=== PATIENT | male | born 1980 | race Caucasian/White ===

== ENCOUNTER 2018-03-06 16:23 | Inpatient (IN) | payer BC ==
[~2018-03-06 16:23] MED LIST: CEP500 PO; LOR5 PO; LORA-802 PO
[2018-03-06] MEDS ORDERED: NS(*) 0.9% 1000 ML BAG 1,000 ML IV ONE (16:35)
[2018-03-06] MEDS ORDERED: ONDANSETRON 4 MG/2 ML VIAL IVP ONE (16:40)
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
[2018-03-06 16:45] LABS: PLATELET COUNT, AUTOMATED 326 K/uL (150-450)
[2018-03-06] MEDS ORDERED: DEXTROSE 50% 50 ML SYR ONE (16:59)
[2018-03-06] MEDS ORDERED: DEXL60CA6 PO (17:05)
[2018-03-06] MEDS ORDERED: DULO60CA56 PO (17:05)
[2018-03-06] MEDS ORDERED: PREG150C33 PO (17:05)
[2018-03-06 17:12] LABS: INR 0.96
--- NOTE | 2018-03-06 17:26 | RADIOLOGY IMAGING REPORT ---
FACILITY: [facility] [place] PATIENT NAME: Otto Zurita : 1980 MR: [id number] V: [id number] EXAM DATE: [id number] ORDERING PHYSICIAN: ISABELLA AHUMADA TECHNOLOGIST: Location[place] [facility] [place] Patient: Otto Zurita : 1980 Visit/Account:[id number] Date of Sevice: 03/06/2018 EXAMINATION: CT HEAD AND CERVICAL SPINE WITHOUT CONTRAST COMPARISON: None available HISTORY: fall, head injury, sz activity, hx TBI PROCEDURE: Noncontrast CT from the vertex through the skull base and multiplanar noncontrast cervical spine. One of the following dose optimization techniques was utilized in the performance of this exa m: Automated exposure control; adjustment of the mA and/or kV according to the patient's size; or use of an iterative reconstruction technique. Specific details can be referenced in the facility's rad iology CT exam operational policy. FINDINGS: CT head without contrast: Brain volume: Age-appropriate. Hemorrhage/extra-axial fluid: None. Mass effect/midline shift/edema: None. Ischemia: Garza-white differentiation is preserved. Ventricles and basal cisterns: Within normal limits. Posterior fossa: Negative. Vessels: Negative. Calvarium, skull base, and scalp: Negative. Visualized sinuses and orbits: Within normal limits. CT cervical spine without contrast: Alignment: Within normal limits. Cranio-cervical junction: Within normal limits. Vertebral bodies: No fracture. Posterior elements: Facet alignment is within normal limits. No fracture. Disc spaces: Negative. Hardware: None. Soft tissues: Negative. Visualized upper chest: Negative. IMPRESSION: 1. Negative noncontrast head CT. 2. Negative CT cervical spine. Report Dictated By: Curtis Tobias MD at 03/06/2018 5:11 PM Report E-Signed By: Curtis Tobias MD at 03/06/2018 5:22 PM [id number]
--- NOTE | 2018-03-06 17:27 | RADIOLOGY IMAGING REPORT ---
FACILITY: [facility] PATIENT NAME: Otto Zuriat : 1980 MR: [id number] V: [id number] EXAM DATE: ORDERING PHYSICIAN: ISABELLA AHUMADA TECHNOLOGIST: Location: [facility] Patient: Otto Zurita : 1980 Visit/Account:[id number] Date of Sevice: 03/06/2018 Examination: CHEST SINGLE AP Comparison: None. History: Fall. Altered level of consciousness. Findings: Cardiac and hilar contour size is within normal limits. No consolidation, nodule, or peribr onchial inflammation. No pneumothorax, edema, or effusion. Osseous structures are intact. IMPRESSION: Negative chest. Report Dictated By: Curtis Tobias MD at 03/06/2018 5:22 PM Report E-Signed By: Curtis Tobias MD at 03/06/2018 5:23 PM [id number]
--- NOTE | 2018-03-06 17:27 | RADIOLOGY IMAGING REPORT ---
FACILITY: [facility] PATIENT NAME: Otto Zurita : 1980 MR: [id number] V: [id number] EXAM DATE: [id number] ORDERING PHYSICIAN: ISABELLA AHUMADA TECHNOLOGIST: Location: [facility] Patient: Otto Zurita : 1980 Visit/Account:[id number] Date of Sevice: 03/06/2018 EXAMINATION: CT HEAD AND CERVICAL SPINE WITHOUT CONTRAST COMPARISON: None available HISTORY: fall, head injury, sz activity, hx TBI PROCEDURE: Noncontrast CT from the vertex through the skull base and multiplanar noncontrast cervical spine. One of the following dose optimization techniques was utilized in the performance of this exa m: Automated exposure control; adjustment of the mA and/or kV according to the patient's size; or use of an iterative reconstruction technique. Specific details can be referenced in the facility's rad iology CT exam operational policy. FINDINGS: CT head without contrast: Brain volume: Age-appropriate. Hemorrhage/extra-axial fluid: None. Mass effect/midline shift/edema: None. Ischemia: Garza-white differentiation is preserved. Ventricles and basal cisterns: Within normal limits. Posterior fossa: Negative. Vessels: Negative. Calvarium, skull base, and scalp: Negative. Visualized sinuses and orbits: Within normal limits. CT cervical spine without contrast: Alignment: Within normal limits. Cranio-cervical junction: Within normal limits. Vertebral bodies: No fracture. Posterior elements: Facet alignment is within normal limits. No fracture. Disc spaces: Negative. Hardware: None. Soft tissues: Negative. Visualized upper chest: Negative. IMPRESSION: 1. Negative noncontrast head CT. 2. Negative CT cervical spine. Report Dictated By: Curtis Tobias MD at 03/06/2018 5:11 PM Report E-Signed By: Curtis Tobias MD at 03/06/2018 5:22 PM [id number]
--- NOTE | 2018-03-06 17:31 | EKG ---
FACILITY: [facility] PATIENT NAME: SHERMAN SMITH : [id number] MR: [id number] V: [id number] EXAM DATE: ORDERING PHYSICIAN: ISABELLA AHUMADA TECHNOLOGIST: SO López Reason : Blood Pressure : / mmHG Vent. Rate : 076 BPM Atrial Rate : 076 BPM P-R Int : 148 ms QRS Dur : 086 ms QT Int : 408 ms P-R-T Axes : 060 081 055 degrees QTc Int : 459 ms Sinus rhythm Nonspecific ST findings anterior leads No previous ECGs available Confirmed by NORMA GIANG ([id number] on 03/07/2018 6:28:45 AM Referred By: Confirmed By:NORMA GIANG
[2018-03-06] MEDS ORDERED: fentaNYL CITR 100 MCG/2 ML AMP IVP ONE (18:05)
[2018-03-06 18:54] VITALS: BP 121/80
[2018-03-06] MEDS: ACETAMINOPHEN 325 MG TAB PO PRN (19:38)
[2018-03-06] MEDS: D5 1/2 NS(*) 1000 ML BAG 1,000 ML IV PRN (19:48)
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
[2018-03-06] MEDS: DULoxetine HCL 30 MG CAPCR PO SCH (21:50)
[2018-03-06 22:05] VITALS: BP 111/75
[2018-03-07 05:51] LABS: PLATELET COUNT, AUTOMATED 272 K/uL (150-450)
[2018-03-07] MEDS: ACETAMINOPHEN 325 MG TAB PO PRN ×3 (06:33→22:15)
[2018-03-07] MEDS: D5 1/2 NS(*) 1000 ML BAG 1,000 ML IV PRN ×2 (06:35→21:56)
[2018-03-07 07:02] VITALS: BP 110/78
[2018-03-07] MEDS: PROMETHAZINE 25 MG/ML 1 ML AMP IVP PRN ×2 (07:22→16:36)
[2018-03-07] MEDS ORDERED: PREGABALIN 50 MG CAPSULE PO ONE (09:00)
[2018-03-07] MEDS: PANTOPRAZOLE SOD 40 MG TABEC PO SCH (09:10)
[2018-03-07] MEDS: ENOXAPARIN 40 MG/0.4ML SYR SC SCH (09:11)
--- NOTE | 2018-03-07 10:35 | Hospitalist Progress Note ---
Subjective Progress Notes Subjective He has complaints of headache and nausea this morning. He states the headache is worse than his usual. Patient Complains of: Cardiovascular: No: Chest Pain Respiratory: No: Shortness of Breath Physical Exam Vital Signs Date Time Temp Pulse Resp B/P (MAP) Pulse Ox O2 Delivery O2 Flow Rate FiO2 03/07/18 07:02 97.8 70 18 110/78 (89) 87 Room Air 03/06/18 22:05 0.5 Intake and Output 03/07/18 00:00 Intake Total 1250 ml Output Total 900 ml Balance 350 ml Intake Oral 250 ml IV Total 1000 ml Output Urine Total 900 ml # Voids 1 General Appearance: Alert, Awake, No Acute Distress, Afebrile Neuro: Other (right sided weakness, improving per patient) Cardiovascular: Regular Rate and Rhythm Respiratory: No Respiratory Distress, Clear to Auscultation GI: Soft and Non-Tender Extremities: Warm, Perfused; No Edema Psych: Alert & Oriented X3, Appropriate Mood & Affect Result Diagram: 03/07/1852103/07/18521 Assessment and Plan Problems: (1) Seizure Status: Acute Assessment & Plan: It does sound as if he had a generalized tonic-clonic seizure. It was likely related to the hypoglycemia, but could also be related to his previous TBI or possibly medications. Continue telemetry and seizure precautions. Will monitor glucoses closely. Check insulin and c-peptide levels. EEG done this morning wnl. He has not had further seizure since maintaining his blood glucoses. (2) Hypoglycemia Status: Acute Assessment & Plan: He is not diabetic and not taking any medications for such. He is on Lyrica which can cause hypoglycemia albeit rarely. Resume, secondary to likely withdraw symptoms of Lyrica. Insulin and c-peptide levels pending. He is nauseous this morning. He will continue D5 1/2NS for his IV fluids until eating regularly. Check glucoses every 2hrs. Watch closely. (3) TBI (traumatic brain injury) Status: Chronic Assessment & Plan: This may be the underlying cause for seizure. EEG wnl. (4) Post traumatic stress disorder (PTSD) Status: Chronic Assessment & Plan: He has been managed with fairly high dose Cymbalta (120mg qHS). Will continue for now. (5) Chronic back pain Status: Chronic Assessment & Plan: He is on chronic treatment with Lyrica. He likely was having withdraw from Lyrica, with headache and nausea. Symptoms improving after resuming Lyrica. Will have to monitor glucose closely, as Lyrica could cause hypoglycemia. (6) Chronic hip pain Status: Chronic Exam Sepsis Risk: No Definite Risk SAV BERNABE CHEMICAL EQUIPMENT REPAIRER Mar 07, 2018 10:35
[2018-03-07 12:46] VITALS: BP 113/75
[2018-03-07] MEDS: PREGABALIN 50 MG CAPSULE PO SCH ×2 (14:02→20:18)
[2018-03-07 19:10] VITALS: BP 115/74
[2018-03-07] MEDS ORDERED: INFLUENZA VIRUS VAC 0.5ML SYR IM ONLY ONE (19:20)
[2018-03-07] MEDS: DULoxetine HCL 30 MG CAPCR PO SCH (20:17)
[2018-03-07] MEDS ORDERED: PREGABALIN 50 MG CAPSULE PO SCH (21:00)
[2018-03-08] VITALS (7 sets, daily range): BP systolic 91–134; BP diastolic 54–88
[2018-03-08] MEDS: PROMETHAZINE 25 MG/ML 1 ML AMP IVP PRN ×3 (00:13→20:32)
[2018-03-08] MEDS: PANTOPRAZOLE SOD 40 MG TABEC PO SCH (09:06)
[2018-03-08] MEDS: PREGABALIN 50 MG CAPSULE PO SCH ×3 (09:06→20:32)
[2018-03-08] MEDS: ENOXAPARIN 40 MG/0.4ML SYR SC SCH (09:07)
[2018-03-08] MEDS: ACETA/BUTAL/CAFF 325/50/40 TAB PO PRN ×2 (10:11→20:32)
--- NOTE | 2018-03-08 11:30 | Hospitalist Progress Note ---
Subjective Progress Notes Subjective He was admitted with hypoglycemia. He reports much improvement in symptoms from yesterday (MEDRANO and nausea). He has been eating without difficulty. Patient Complains of: Cardiovascular: No: Chest Pain Respiratory: No: Shortness of Breath Physical Exam Vital Signs Date Time Temp Pulse Resp B/P (MAP) Pulse Ox O2 Delivery O2 Flow Rate FiO2 03/08/18 08:02 97.7 70 16 98/59 (72) 90 Room Air 03/08/18 04:07 0.5 Intake and Output 03/08/18 06:59 Intake Total 1810 ml Balance 1810 ml Intake Oral 810 ml IV Total 1000 ml # Voids 3 General Appearance: Alert, Awake, No Acute Distress, Afebrile Neuro: No Gross deficits Cardiovascular: Regular Rate and Rhythm Respiratory: No Respiratory Distress, Clear to Auscultation GI: Soft and Non-Tender Psych: Alert & Oriented X3, Appropriate Mood & Affect Result Diagram: 03/07/1852103/07/18521 Assessment and Plan Problems: (1) Seizure Status: Acute Assessment & Plan: It does sound as if he had a generalized tonic-clonic seizure. It was likely related to the hypoglycemia, but could also be related to his previous TBI or possibly medications. Continue telemetry and seizure precautions. Will monitor glucoses closely. Insulin and c-peptide levels pending. EEG done 03/07 wnl. He has not had further seizure since maintaining his blood glucoses. (2) Hypoglycemia Status: Acute Assessment & Plan: He is not diabetic and not taking any medications for such. He is on Lyrica which can cause hypoglycemia albeit rarely. Resume, secondary to likely withdraw symptoms of Lyrica. Insulin and c-peptide levels pending. We will discontinue D5 1/2NS this morning. Check glucoses every 2hrs, likely can reduce to q4 hour checks this afternoon. (3) TBI (traumatic brain injury) Status: Chronic Assessment & Plan: This may be the underlying cause for seizure, but he has had no further seizures since admission. EEG wnl. (4) Post traumatic stress disorder (PTSD) Status: Chronic Assessment & Plan: He has been managed with fairly high dose Cymbalta (120mg qHS). Will continue. (5) Chronic back pain Status: Chronic Assessment & Plan: He is on chronic treatment with Lyrica. He likely was having withdraw from Lyrica, with headache and nausea. Symptoms improved after resuming Lyrica. Will continue to monitor glucose closely, as Lyrica could cause hypoglycemia. (6) Chronic hip pain Status: Chronic Exam Sepsis Risk: No Definite Risk SAV BERNABE SHIP SURVEYOR Mar 08, 2018 11:30
[2018-03-08] MEDS: DULoxetine HCL 30 MG CAPCR PO SCH (20:32)
[2018-03-09 04:04] VITALS: BP 99/59
[2018-03-09] MEDS: PROMETHAZINE 25 MG/ML 1 ML AMP IVP PRN ×2 (04:06→10:53)
[2018-03-09 05:52] LABS: PLATELET COUNT, AUTOMATED 289 K/uL (150-450)
[2018-03-09] MEDS: ENOXAPARIN 40 MG/0.4ML SYR SC SCH (08:51)
[2018-03-09] MEDS: PREGABALIN 50 MG CAPSULE PO SCH ×2 (08:51→14:42)
[2018-03-09] MEDS: PANTOPRAZOLE SOD 40 MG TABEC PO SCH (08:51)
[2018-03-09] MEDS: ACETA/BUTAL/CAFF 325/50/40 TAB PO PRN (10:53)
[2018-03-09 11:47] VITALS: BP 122/94
[2018-03-09] MEDS ORDERED: BLOO-1511 MC (12:48)
[2018-03-09] MEDS ORDERED: GLUC1KIT4 IJ (12:48)
[2018-03-09] MEDS ORDERED: lancets (12:48)
[2018-03-09] MEDS ORDERED: Glucometer (12:48)
--- NOTE | 2018-03-09 12:58 | Hospitalist Depart ---
Discharge Summary Reason for Hosp/Final Diag: (1) Hypoglycemia Status: Acute Hospital Course & Plan: He presented with a seizure and a glucose of 39. He is not diabetic and not taking any medications for such. He is on Lyrica which can cause hypoglycemia albeit rarely. He was given an amp of D50 and started on a D5 IV drip. Glucose has been stable. The drip was stopped yesterday and his glucose has remained stable. C-Peptide and Insulin levels are high. There wasn't a glucose done with the test, so it is not clear if they are truly abnormal. However, there was a figure stick glucose reported to be done within 4 minutes of the blood draw that was 73. I spoke with Dr. Marvin (Endocrinology) and she recommended further evaluation as an inpatient or outpatient. The patient and prefer outpatient. He will be sent home with a glucagon emergency kit and a glucometer. He is to check glucose every morning and with symptoms. (2) Seizure Status: Acute Hospital Course & Plan: It does sound as if he had a generalized tonic-clonic seizure. It was likely related to the hypoglycemia, but could also be related to his previous TBI or possibly medications. No further episodes. EEG done 03/07 wnl. (3) TBI (traumatic brain injury) Status: Chronic Hospital Course & Plan: This may be the underlying cause for seizure, but he has had no further seizures since admission. EEG wnl. (4) Post traumatic stress disorder (PTSD) Status: Chronic Hospital Course & Plan: He has been managed with fairly high dose Cymbalta (120mg qHS). Will continue. (5) Chronic back pain Status: Chronic Hospital Course & Plan: He is on chronic treatment with Lyrica. He likely was having withdraw from Lyrica, with headache and nausea. Symptoms improved after resuming Lyrica. Will continue to monitor glucose closely, as Lyrica could cause hypoglycemia. (6) Chronic hip pain Status: Chronic Departure Weight (Pounds): 210 Result Diagram: 03/09/18 0518 03/09/18 0518 Item Value Date Time White Blood Count 7.9 k/uL 03/06/18 1627 White Blood Count 7.6 k/uL 03/07/18 0522 White Blood Count 9.0 k/uL 03/09/18 0518 Hemoglobin 14.7 g/dL 03/09/18 0518 Hemoglobin 14.3 g/dL 03/07/18 0522 Hemoglobin 15.6 g/dL 03/06/18 1627 Mean Corpuscular Volume 88.6 fL 03/06/18 1627 Mean Corpuscular Volume 89.5 fL 03/07/18 0522 Mean Corpuscular Volume 90.4 fL 03/09/18 0518 Platelet Count 289 K/uL 03/09/18 0518 Platelet Count 272 K/uL 03/07/18 0522 Platelet Count 326 K/uL 03/06/18 1627 Prothromb Time International Ratio 0.96 03/06/18 1627 Random Glucose 39 mg/dl *L 03/06/18 1627 Total Bilirubin 0.5 mg/dl 03/06/18 1627 Aspartate Amino Transf (AST/SGOT) 72 U/L H 03/06/18 1627 Alanine Aminotransferase (ALT/SGPT) 58 U/L H 03/06/18 1627 Alkaline Phosphatase 73 U/L 03/06/18 1627 Troponin I < 0.012 ng/ml 03/06/18 1627 Total Protein 8.1 g/dl 03/06/18 1627 Albumin 4.6 g/dl 03/06/18 1627 Thyroid Stimulating Hormone (TSH) 0.94 uIU/ml 03/06/18 1627 Sodium Level 140 mmol/L 03/06/18 1627 Potassium Level 4.1 mmol/L 03/06/18 1627 Chloride Level 101 mmol/L 03/06/18 1627 Carbon Dioxide Level 27 mmol/L 03/06/18 1627 Blood Urea Nitrogen 13 mg/dl 03/06/18 1627 Creatinine 1.10 mg/dl 03/06/18 1627 Whole Blood Glucose 157 mg/DL H 03/06/18 1720 Random Insulin 49 uIU/mL 03/06/18 1946 Serum C-Peptide 7.0 ng/mL H 03/06/18 1946 Whole Blood Glucose 73 mg/DL L 03/06/18 1950 Whole Blood Glucose 91 mg/DL 03/06/18 2155 Whole Blood Glucose 87 mg/DL 03/07/18 0013 Blood Urea Nitrogen 10 mg/dl 03/07/18 0522 Creatinine 0.90 mg/dl 03/07/18 0522 Calcium Level 9.0 mg/dl 03/07/18 0522 Magnesium Level 2.0 mg/dl 03/07/18 0522 Total Bilirubin 0.4 mg/dl 03/07/18 0522 Aspartate Amino Transf (AST/SGOT) 35 U/L 03/07/18 0522 Alanine Aminotransferase (ALT/SGPT) 63 U/L H 03/07/18 0522 Whole Blood Glucose 86 mg/DL 03/07/18 1242 Whole Blood Glucose 114 mg/DL H 03/07/18 1401 Whole Blood Glucose 90 mg/DL 03/07/18 1836 Whole Blood Glucose 107 mg/DL 03/07/182010 Whole Blood Glucose 84 mg/DL 03/07/18 1630 Whole Blood Glucose 93 mg/DL 03/07/18 2214 Whole Blood Glucose 92 mg/DL 03/08/18 0002 Whole Blood Glucose 101 mg/DL 03/08/18 0200 Whole Blood Glucose 103 mg/DL 03/08/18 0411 Whole Blood Glucose 97 mg/DL 03/08/18 0619 Sodium Level 138 mmol/L 03/09/18 0518 Potassium Level 4.5 mmol/L 03/09/18 0518 Chloride Level 106 mmol/L 03/09/18 0518 Carbon Dioxide Level 25 mmol/L 03/09/18 0518 Blood Urea Nitrogen 12 mg/dl 03/09/18 0518 Creatinine 1.00 mg/dl 03/09/18 0518 Random Glucose 89 mg/dl 03/09/18 0518 Calcium Level 9.5 mg/dl 03/09/18 0518 Total Bilirubin 0.3 mg/dl 03/09/18 0518 Aspartate Amino Transf (AST/SGOT) 29 U/L 03/09/18 0518 Alanine Aminotransferase (ALT/SGPT) 54 U/L 03/09/18 0518 Alkaline Phosphatase 62 U/L 03/09/18 0518 Whole Blood Glucose 102 mg/DL 03/09/18 0853 Whole Blood Glucose 89 mg/DL 03/09/18 0400 Whole Blood Glucose 97 mg/DL 03/08/18 2028 Whole Blood Glucose 92 mg/DL 03/08/18 2346 Urine RBC 1 /HPF 03/06/18 1836 Urine WBC 2 /HPF 03/06/18 1836 Urine Leukocyte Esterase Negative 03/06/18 1836 Urine Glucose (UA) 50 mg/dL H 03/06/18 1836 Urine Squamous Epithelial Cells None /LPF 03/06/18 1836 Urine Bacteria Negative /HPF 03/06/18 1836 Urine Mucus None /HPF 03/06/18 1836 Serum Alcohol < 10 mg/dl 03/06/18 1627 Urine Cannabinoids Screen Positive 03/06/18 1836 Urine Cocaine Screen Negative 03/06/18 1836 Urine Benzodiazepines Screen Negative 03/06/18 1836 Urine Amphetamines Screen Negative 03/06/18 1836 Urine Phencyclidine Screen Negative 03/06/18 1836 Ur Tricyclic Antidepressants Screen Negative 03/06/18 1836 Urine Barbiturates Screen Negative 03/06/18 1836 Urine Opiates Screen Negative 03/06/18 1836 Imaging 03/06/[address] - 1. Negative noncontrast head CT. 2. Negative CT cervical spine. 03/06/18 CXR - Negative chest. 03/06/[address] - 1. Negative noncontrast head CT. 2. Negative CT cervical spine. EKG Vent. Rate : 076 BPM Atrial Rate : 076 BPM P-R Int : 148 ms QRS Dur : 086 ms QT Int : 408 ms P-R-T Axes : 060 081 055 degrees QTc Int : 459 ms Sinus rhythm Nonspecific ST findings anterior leads No previous ECGs available Confirmed by NORMA GIANG ([id number]) on 03/07/2018 6:28:45 AM Condition: Improved Discharge: Home Discharge Instructions Home Meds Active Scripts [lancets] No Conflict Check, PRN for as directed, #100 Prov:ANYA OLEARY MD 03/09/18 Blood Sugar Diagnostic (GLUCOSE TEST STRIP) 1 Each Strip, 1 EACH MC DIRECTED, #100 STRIP Prov:ANYA OLEARY MD 03/09/18 [Glucometer] No Conflict Check, DIRECTED, #1 Prov:ANYA OLEARY MD 03/09/18 Glucagon,Human Recombinant (GLUCAGON EMERGENCY KIT) 1 Mg Kit, 1 MG IJ ONCE PRN for symptomatic low glucose, #1 KIT Prov:ANYA OLEARY MD 03/09/18 Reported Medications Duloxetine Hcl (CYMBALTA) 60 Mg Capsule.dr, 120 MG PO QHS 03/06/18 Dexlansoprazole (DEXILANT) 60 Mg Cap.dr.mp, 60 MG PO QDAY 03/06/18 Pregabalin (LYRICA) 150 Mg Capsule, 150 MG PO TID, CAPSULE 03/06/18 Discontinued Reported Medications Acetaminophen/Hydrocodone (Lortab 5/500) 5 Mg/500 Mg Tab, 1 TAB PO Q4-6H, #10 0 Refills 09/28/09 Cephalexin Monohydrate (Keflex) 500 Mg Cap, 500 MG PO TID, #20 0 Refills 09/28/09 Loratadine (Claritin) 10 Mg Tablet, 10 MG PO, 0 Refills 09/28/09 Diet: Regular Activity: As Tolerated Special Instructions: Check glucose every morning and log it. Check glucose for signs of low glucose (i.e. sweating, anxious, confusion, palpitations) Follow up with Dr. Campbell as scheduled and discuss referals to Endocrinology and Neurology Copies to: NOEMÍ CAMPBELL MD; RUFINO MARVIN MD ; Venous Thromboembolism Antithrombotics Is Pt On Any Antithrombotics?: Yes ANYA OLEARY MD Mar 09, 2018 12:58
[2018-03-09] MEDS ORDERED: ONDA4TAB9 PO (14:55)
== END 2018-03-09 15:38 | disposition home or self-care (01) | DRG 641 ==
LOC: ER 17:13 → MED 17:32
PROVIDERS: ADMIT Internal Medicine; ATTEND Internal Medicine
DX: E16.2 Hypoglycemia, unspecified (principal); R56.9 Unspecified convulsions; K21.9 Gastro-esophageal reflux disease without esophagitis; G89.29 Other chronic pain; F43.12 Post-traumatic stress disorder, chronic; R40.2412 Glasgow coma scale score 13-15, at arrival to emergency department; G44.329 Chronic post-traumatic headache, not intractable; R29.706 NIHSS score 6; R32 Unspecified urinary incontinence; Z88.0 Allergy status to penicillin; Z87.820 Personal history of traumatic brain injury; Z90.49 Acquired absence of other specified parts of digestive tract
CPT/HCPCS: 36415; 36416; 70450; 71045; 72125; 80305; 80320; 81001; 82040; 82247; 82310; 82374; 82435; 82565; 82947; 82948; 83525; 83735; 84075; 84132; 84155; 84295; 84443; 84450; 84460; 84484; 84520; 84681; 85025; 85610; 85730; 93005; 95819; 96361; 96374; 96375; 99285; J1650; J2405; J2550; J3010; J7030

== ENCOUNTER → 2018-04-18 | Outpatient (CLI) | payer OTHER ==
[~2018-04-18] MED LIST changes: +BLOO-1511 MC; +DEXL60CA6 PO; +DULO60CA56 PO; +GLUC1KIT4 IJ; +Glucometer; +ONDA4TAB9 PO; +PREG150C33 PO; +lancets
--- NOTE | 2018-04-18 12:58 | RADIOLOGY IMAGING REPORT ---
FACILITY: [facility] PATIENT NAME: Otto Zurita : 1980 MR: [id number] V: [id number] EXAM DATE: ORDERING PHYSICIAN: AUDRA DEL CID TECHNOLOGIST: Location: [facility] [place] Patient: Otto Zurita : 1980 Visit/Account:[id number] Date of Sevice: 04/18/2018 Examination: MR brain without contrast History: History of traumatic brain injury, migraines, seizures. Comparison: Head CT 03/06/2018 Technique: Multiplane MR imaging was performed through the brain without contrast. Findings: Diffusion: None Ventricles: Normal Midline shift: None Extraaxial fluid: None. Midline craniocervical structures: Minimal reactive nasopharyngeal lymphoid hypertrophy. Parenchyma: Normal Vascular flow voids: Normal Orbits and paranasal sinuses: Normal Other: No significant additional finding. Impression: Normal non-contrast brain MR. Report Dictated By: Rj Lim MD at 04/18/2018 12:50 PM Report E-Signed By: Rj Lim MD at 04/18/2018 12:54 PM [id number]
== END ==
LOC: MRI 01:35
PROVIDERS: ATTEND Psychiatry & Neurology Neurology
DX: G40.409 Other generalized epilepsy and epileptic syndromes, not intractable, without status epilepticus (principal); R56.9 Unspecified convulsions; G43.409 Hemiplegic migraine, not intractable, without status migrainosus; S06.9X9S Unspecified intracranial injury with loss of consciousness of unspecified duration, sequela
CPT/HCPCS: 70551